=== PATIENT | female | born 1980 | race Caucasian/White ===

== ENCOUNTER 2020-02-12 00:39 | Emergency (ER) | payer SELFPAY ==
[~2020-02-12] VITALS: Ht 162.6 cm; Wt 63.6 kg
[2020-02-12 00:41] VITALS: TEMP 97.9
[2020-02-12 01:09] LABS: COLLECTION METHOD CLEAN CATCH
[2020-02-12] MEDS ORDERED: MACROBID 1100 MG/CAP PO (01:56)
[2020-02-12] MEDS ORDERED: PYRIDIUM 100MG100 MG PO (01:56)
[2020-02-12 02:00] LABS: MUCOUS Present /lpf; PH 6 (5-8); URINE APPEARANCE Cloudy; URINE BACTERIA Rare /hpf; URINE BILIRUBIN Negative (NEGATIVE); URINE BLOOD 2+ (NEGATIVE); URINE COLOR Yellow; URINE GLUCOSE Negative (NEGATIVE); URINE KETONE 1+ (NEGATIVE); URINE LEUKOCYTE ESTERASE 3+ (NEGATIVE); URINE NITRATE Negative (NEGATIVE); URINE PROTEIN(semi-quant) 2+ (NEGATIVE); URINE RBC >50 /hpf; URINE UROBILINOGEN Negative (NEGATIVE); URINE WBC >50 /hpf
[2020-02-12 02:10] VITALS: BP 100/67; PULSE 98
== END 2020-02-12 02:10 | disposition home or self-care (01) ==
LOC: COL.ER 00:39
PROVIDERS: Emergency Medicine
DX: N39.0 Urinary tract infection, site not specified (principal)